=== PATIENT | female | born 1975 | race Caucasian/White ===

== ENCOUNTER 2017-11-15 15:00 | Outpatient (CLI) | payer OTHER ==
--- NOTE | 2017-11-15 15:54 | MMO ---
BILATERAL SCREENING MAMMOGRAM: DATE: 11/15/17 HISTORY: 42-year-old female for baseline screening mammography. FINDINGS: Bilateral MLO and CC views of the breasts show heterogeneously dense breast parenchyma, which may low er the sensitivity of mammography. There is no evidence of suspicious mass, suspicious cluster of raheem rocalcifications, or area of architectural distortion. Interpretation of this mammogram was performed with the assistance of computer-aided detection. IMPRESSION: BIRADS 1: Negative Annual screening mammography is recommended. POS: [facility]
== END 2017-11-15 15:01 | disposition home or self-care (01) ==
LOC: SCSMAMMO 15:00
PROVIDERS: ATTEND Family Medicine
DX: Z12.31 Encounter for screening mammogram for malignant neoplasm of breast (principal)
CPT/HCPCS: 77067

== ENCOUNTER 2018-02-10 13:32 | Emergency (ER) | payer OTHER, SELFPAY ==
[2018-02-10] MEDS ORDERED: Ketorolac Tromethamine 30 MG/ML VIAL ONE (14:17)
[2018-02-10] MEDS ORDERED: Ondansetron HCl/PF 4 MG/2 ML Vial ONE (14:17)
[2018-02-10 14:22] LABS: #Eosinphils 0.1 thou/uL (0.0-0.7); #Lymphocytes 1.5 thou/uL (1.20-3.40); #Monocytes 0.4 thou/uL (0.11-0.59); %Basophils 0.7 % (0.0-1.0); %Eosinophils 1.6 % (0.0-10.0); %Lymphocytes 24.3 % (21.0-51.0); %Monocytes 6.2 % (0.0-10.0); %Neutrophils 67.4 % (42.0-75.0); Mean Corpuscular HGB CONC 32.3 g/dL (32.0-36.0); Mean Corpuscular Hemoglobin 26.7 pg (27.0-31.0); Mean Corpuscular Volume 82.9 fL (78.0-98.0); Mean Platelet Volume 8.2 fL (7.4-10.4); Platelet Count 285 thou/uL (130-400); RBC Distribution Width 12.9 % (11.5-14.5); Red Blood Cell (RBC) Count 4.48 mill/uL (4.20-5.40)
[2018-02-10 14:23] LABS: Bilirubin Negative (Negative); Blood, Urine Negative (Negative); Clarity Clear (Clear); Glucose, Urine (Dipstick) Negative (Negative); Leukocyte Negative (Negative); Nitrite Negative (Negative); Protein, Urine (Dipstick) Negative (Neg-Trace); Urobilinogen 0.2 mg/dL (0.2-1.0); pH, Urine 5.5 (5.0-9.0)
[2018-02-10 14:24] LABS: Specific Gravity, Urine 1.028 (1.002-1.036)
[2018-02-10 14:28] LABS: Pregnancy Test - Urine (BHCG) Negative (Negative)
[2018-02-10 14:29] LABS: Pregu Control Background? CLEAR/WHITE (CLR/WHITE); Pregu Control Bar Appear? YES (CONTROL BAR); Specific Gravity 1.028 (1.002-1.036)
[2018-02-10 14:34] LABS: ALT (SGPT) 17 U/L (8-55); AST (SGOT) 19 U/L (5-34); Albumin 3.9 g/dL (3.5-5.0); Alkaline Phosphatase 121 U/L (40-150); Anion Gap 11 mmol/L (10-20); BUN (Urea Nitrogen) 7 mg/dL (7.0-18.7); Bilirubin, Total 0.2 mg/dL (0.2-1.2); Calc. Creatinine Clearance 0 mL/min (70-130); Calcium 9.1 mg/dL (7.8-10.44); Carbon Dioxide 26 mmol/L (22-29); Chloride 104 mmol/L (98-107); Estimated GFR-MDRD 75; Globulin 3.4 g/dL (2.4-3.5); Glucose 90 mg/dL (70-105); Lipase 17 U/L (8-78); Potassium 3.7 mmol/L (3.5-5.1); Protein, Total 7.3 g/dL (6.0-8.3); Sodium 137 mmol/L (136-145)
--- NOTE | 2018-02-10 15:16 | CT ---
CT ABDOMEN AND PELVIS WITHOUT IV CONTRAST: Multiple axial tomograms were obtained through the abdomen and pelvis without IV enhancement. INDICATION: Abdominal pain. Nausea. FINDINGS: The lung bases are clear. Liver, spleen, and pancreas unremarkable. Postcholecystectomy changes noted. Adrenal glands normal. Kidneys unremarkable. Small bowel loops unremarkable. Colon is nondistended and not adequately eval uated. Mural thickening cannot be adequately assessed. If there is concern of colitis, further eval uation with colonoscopy is recommended. The appendix is not identified.. Images through the pelvis appear unremarkable. There is evidence of hysterectomy. Aorta is normal c aliber. No adenopathy is seen. IMPRESSION: No acute process identified. Colon is nondistended and not adequately evaluated. POS: ОЛЬГА
== END 2018-02-10 14:51 | disposition home or self-care (01) ==
LOC: SCSER 13:32
DX: R11.2 Nausea with vomiting, unspecified (principal); R19.7 Diarrhea, unspecified; F32.9 Major depressive disorder, single episode, unspecified; F41.9 Anxiety disorder, unspecified; Z79.899 Other long term (current) drug therapy
CPT/HCPCS: 74176; 80053; 81003; 81025; 83690; 85025; 96374; 96375; J1885; J2405

== ENCOUNTER 2018-03-16 23:16 | Emergency (ER) | payer OTHER, SELFPAY ==
--- NOTE | 2018-03-16 23:52 | RAD ---
AP VIEW CHEST: 03/16/18 HISTORY: Shortness of breath. AP view chest is obtained. EKG leads seen over the chest. The lungs are well aerated. No evidence of active intrathoracic disease seen. No evidence of effusions, pneumonia or pneumothorax seen. IMPRESSION: Unremarkable AP view chest. POS: [facility]
[2018-03-17 00:02] LABS: ALT (SGPT) 23 U/L (8-55); AST (SGOT) 28 U/L (5-34); Albumin 3.9 g/dL (3.5-5.0); Alkaline Phosphatase 149 U/L (40-150); Anion Gap 13 mmol/L (10-20); BUN (Urea Nitrogen) 9 mg/dL (7.0-18.7); Bilirubin, Total 0.1 mg/dL (0.2-1.2); Calc. Creatinine Clearance 0 mL/min (70-130); Calcium 9.1 mg/dL (7.8-10.44); Carbon Dioxide 24 mmol/L (22-29); Chloride 105 mmol/L (98-107); Estimated GFR-MDRD 64; Globulin 3.6 g/dL (2.4-3.5); Glucose 96 mg/dL (70-105); Potassium 3.4 mmol/L (3.5-5.1); Protein, Total 7.5 g/dL (6.0-8.3); Sodium 139 mmol/L (136-145)
[2018-03-17 00:04] LABS: CKMB 0.3 ng/mL (0-6.6); Troponin I Less than 0.010 ng/mL (< 0.028)
[2018-03-17 00:08] LABS: Band 1 % (5-11); Lymphocytes 32 % (21-51); MDiff Complete? YES; Mean Corpuscular HGB CONC 32.9 g/dL (32.0-36.0); Mean Corpuscular Hemoglobin 26.8 pg (27.0-31.0); Mean Corpuscular Volume 81.5 fL (78.0-98.0); Mean Platelet Volume 7.4 fL (7.4-10.4); Monocytes 5 % (0-10); Neutrophil 61 % (42-75); Platelet Count 321 thou/uL (130-400); RBC Distribution Width 12.6 % (11.5-14.5); Reactive Lymphocytes 1 % (0-10); Red Blood Cell (RBC) Count 4.87 mill/uL (4.20-5.40); White Blood Cell (WBC) Count 9.1 thou/uL (4.8-10.8)
== END 2018-03-17 00:58 | disposition home or self-care (01) ==
LOC: SCSER 23:16
DX: J06.9 Acute upper respiratory infection, unspecified (principal); R07.89 Other chest pain; R00.2 Palpitations; F32.9 Major depressive disorder, single episode, unspecified; F41.9 Anxiety disorder, unspecified; Z79.899 Other long term (current) drug therapy
CPT/HCPCS: 71045; 80053; 82553; 84484; 85025; 87081; 87430; 93005; 96360

== ENCOUNTER 2018-06-08 19:09 | Emergency (ER) | payer OTHER ==
[2018-06-08] MEDS ORDERED: Ketorolac Tromethamine 30 MG/ML VIAL ONE (20:00)
[2018-06-08 20:11] LABS: Band 2 % (5-11); Eosinophils 4 % (0-10); Hemoglobin 13.7 g/dL (12.0-16.0); Lymphocytes 16 % (21-51); MDiff Complete? YES; Mean Corpuscular Hemoglobin 27.7 pg (27.0-31.0); Mean Corpuscular Volume 83.8 fL (78.0-98.0); Mean Platelet Volume 6.6 fL (7.4-10.4); Monocytes 9 % (0-10); Neutrophil 67 % (42-75); Platelet Count 404 thou/uL (130-400); Platelet Morphology Comment Appears Adequate; RBC Distribution Width 13.1 % (11.5-14.5); Reactive Lymphocytes 2 % (0-10); Red Blood Cell (RBC) Count 4.95 mill/uL (4.20-5.40); White Blood Cell (WBC) Count 8.8 thou/uL (4.8-10.8)
[2018-06-08 20:12] LABS: ALT (SGPT) 15 U/L (8-55); AST (SGOT) 23 U/L (5-34); Alkaline Phosphatase 153 U/L (40-150); Anion Gap 13 mmol/L (10-20); BUN (Urea Nitrogen) 9 mg/dL (7.0-18.7); Bilirubin, Total 0.3 mg/dL (0.2-1.2); Calc. Creatinine Clearance 0 mL/min (70-130); Calcium 9.2 mg/dL (7.8-10.44); Carbon Dioxide 24 mmol/L (22-29); Chloride 105 mmol/L (98-107); Estimated GFR-MDRD 67; Globulin 3.7 g/dL (2.4-3.5); Glucose 96 mg/dL (70-105); Potassium 3.3 mmol/L (3.5-5.1); Protein, Total 7.7 g/dL (6.0-8.3); Sodium 139 mmol/L (136-145)
--- NOTE | 2018-06-08 20:22 | RAD ---
TWO VIEWS LEFT HIP: 06/08/18 HISTORY: Pain. flu-like symptoms. AP and frogleg views left hip is obtained. AP and frogleg views left hip demonstrates no evidence of left hip fractures, subluxations or bony le sions. IMPRESSION: Normal two views left hip. POS: [facility]
== END 2018-06-08 20:51 | disposition home or self-care (01) ==
LOC: SCSER 19:09
DX: S70.02XA Contusion of left hip, initial encounter (principal); B34.9 Viral infection, unspecified; F32.9 Major depressive disorder, single episode, unspecified; F41.9 Anxiety disorder, unspecified; Z87.891 Personal history of nicotine dependence; Z79.899 Other long term (current) drug therapy; W19.XXXA Unspecified fall, initial encounter
CPT/HCPCS: 80053; 85025; 87804; 96361; 96374; J1885

== ENCOUNTER 2018-06-14 | Emergency (ER) | payer OTHER ==
[2018-06-14 00:38] LABS: #Basophils 0.1 thou/uL (0.0-0.2); #Eosinphils 0.2 thou/uL (0.0-0.7); #Monocytes 0.4 thou/uL (0.11-0.59); #Neutrophils 2.6 thou/uL (1.40-6.50); %Basophils 1.4 % (0.0-1.0); %Eosinophils 3.4 % (0.0-10.0); %Lymphocytes 38.1 % (21.0-51.0); %Monocytes 8.4 % (0.0-10.0); %Neutrophils 48.7 % (42.0-75.0); Hemoglobin 12.9 g/dL (12.0-16.0); Mean Corpuscular HGB CONC 32.8 g/dL (32.0-36.0); Mean Corpuscular Volume 85.4 fL (78.0-98.0); Mean Platelet Volume 6.9 fL (7.4-10.4); Platelet Count 370 thou/uL (130-400); RBC Distribution Width 12.5 % (11.5-14.5); Red Blood Cell (RBC) Count 4.61 mill/uL (4.20-5.40); White Blood Cell (WBC) Count 5.3 thou/uL (4.8-10.8)
[2018-06-14 00:59] LABS: ALT (SGPT) 21 U/L (8-55); AST (SGOT) 32 U/L (5-34); Albumin 3.9 g/dL (3.5-5.0); Alkaline Phosphatase 144 U/L (40-150); Anion Gap 12 mmol/L (10-20); BUN (Urea Nitrogen) 6 mg/dL (7.0-18.7); Bilirubin, Total 0.2 mg/dL (0.2-1.2); Calc. Creatinine Clearance 0 mL/min (70-130); Calcium 9.2 mg/dL (7.8-10.44); Carbon Dioxide 25 mmol/L (22-29); Chloride 105 mmol/L (98-107); Estimated GFR-MDRD 75; Globulin 3.3 g/dL (2.4-3.5); Glucose 97 mg/dL (70-105); Potassium 3.5 mmol/L (3.5-5.1); Protein, Total 7.2 g/dL (6.0-8.3); Sodium 138 mmol/L (136-145)
[2018-06-14] MEDS ORDERED: Ondansetron PF 4 MG/2 ML Vial ONE (01:36)
[2018-06-14 02:11] LABS: Bilirubin Negative (Negative); Blood, Urine Negative (Negative); Clarity CLEAR (Clear); Glucose, Urine (Dipstick) Negative (Negative); Leukocyte Negative (Negative); Nitrite Negative (Negative); Pregnancy Test - Urine (BHCG) Negative (Negative); Pregu Control Background? CLEAR/WHITE (CLR/WHITE); Pregu Control Bar Appear? YES (CONTROL BAR); Protein, Urine (Dipstick) Negative (Neg-Trace); Specific Gravity 1.033 (1.002-1.036); Specific Gravity, Urine 1.033 (1.002-1.036); Urobilinogen 0.2 mg/dL (0.2-1.0)
[2018-06-14] MEDS ORDERED: Ketorolac Tromethamine 30 MG/ML VIAL ONE (02:50)
[2018-06-14] MEDS ORDERED: Dicyclomine 20 MG TAB ONE (02:50)
--- NOTE | 2018-06-14 08:29 | CT ---
PRELIMINARY REPORT/[facility]/EMERGENTY AFTER-HOURS PROCEDURE CT Abdomen and Pelvis With Contrast EXAM DATE/TIME: 06/14/2018 2:41 AM CLINICAL HISTORY: 43 years old, female; Pain; Abdominal pain; Generalized; Patient HX: 43 yo female presents for evalua tion of abdominal pain. Patient states "it feels like a baby is pushing out of my rib. " patient stat es that she has presented to ed in the past given fluids and cleared to go home. She states that her pain had gotten worse and she felt dehydrated and so she wanted to be seen tonight. Patient states th at she has been nauseated during this entire time. She denies vomiting, but states she has longstandi ng diarrhea. She denies fevers or chills. Surgical HX of complete hysterectomy, thyroidectomy, cholecystectomy TECHNIQUE: Axial computed tomography images of the abdomen and pelvis with intravenous contrast. Coronal reformatted images were created and reviewed. COMPARISON: No relevant prior studies available. FINDINGS: Lower thorax: No acute findings. ABDOMEN: Liver: Normal. No mass. Gallbladder and bile ducts: Prior cholecystectomy. Pancreas: Normal. No ductal dilation. Spleen: Normal. No splenomegaly. Adrenals: Normal. No mass. Kidneys and ureters: Normal. No hydronephrosis. Stomach and bowel: No bowel wall thickening or intestinal obstruction. Appendix: Normal appendix. PELVIS: Bladder: Unremarkable as visualized. Reproductive: Prior hysterectomy. ABDOMEN and PELVIS: Intraperitoneal space: Normal. No free air. No significant fluid collection. Bones/joints: No acute fracture. No dislocation. Soft tissues: Unremarkable. Vasculature: Normal. No abdominal aortic aneurysm. Lymph nodes: Normal. No enlarged lymph nodes. IMPRESSION: No acute findings. Thank you for allowing us to participate in the care of your patient. Dictated and Authenticated by: Vipin La MD 06/14/2018 3:54 AM Central Time ([place] & [place]) FINAL REPORT CT ABDOMEN AND PELVIS WITH IV CONTRAST: Date: 06/14/18 IMPRESSION: I agree with the preliminary report given by Jorge. POS: OFF
[2018-06-14] MEDS ORDERED: ISOVUE-370 76%-LOCM 1 ML ONE (09:27)
== END 2018-06-14 03:59 | disposition home or self-care (01) ==
LOC: ERS
DX: K58.9 Irritable bowel syndrome, unspecified (principal); F41.9 Anxiety disorder, unspecified; F32.9 Major depressive disorder, single episode, unspecified; Z87.891 Personal history of nicotine dependence; Z79.899 Other long term (current) drug therapy
CPT/HCPCS: 36415; 74177; 80053; 81003; 81025; 83690; 85025; 93005; 96361; 96374; 96375; J1885; J2405; Q9966

== ENCOUNTER 2018-11-10 16:21 | Emergency (ER) | payer OTHER ==
[2018-11-10] MEDS ORDERED: Ketorolac Tromethamine 30 MG/ML VIAL ONE (17:25)
== END 2018-11-10 17:45 | disposition home or self-care (01) ==
LOC: SCSER 16:21
DX: R51 Headache (principal); K58.9 Irritable bowel syndrome, unspecified; F41.9 Anxiety disorder, unspecified; F32.9 Major depressive disorder, single episode, unspecified; Z79.899 Other long term (current) drug therapy; Z79.01 Long term (current) use of anticoagulants
CPT/HCPCS: 96372; 99283; J1885

== ENCOUNTER 2019-03-20 13:13 | Observation (INO) | payer OTHER ==
--- NOTE | 2019-03-20 13:16 | PDOC.FPRHP ---
- History of Present Illness Chief Complaint: Chest pain History of Present Illness: 43 y/o F with a pmhx of thyroid CA, S/P thyroidectomy, IBS, LEAH, and MDD, here for chest pain that started last week on Wed or Wednesday. Pt states she started having the CP suddenly and the pain radiated down her R arm. The character was sharp and tingling/numbness with the radiation. Pt became dizzy/faint, but denies any syncopal event. Pt describes an accompanied slowing and transient rise in heart rate, not described as a palpitation. Last night the pt had another episode of CP, 7/10 intensity, with associated dizziness, nausea and SOB. Pt states that yesterday when the CP came on she was lifting a box of cola cans and walking up stairs. The pain alleviated to a 5/10 when she rested. The PT c/o current 5/10 CP, denies current Nausea or SOB. States she is slightly anxious about the chest pain. Pt was seen an evaluated at [facility] Last week, with neg EKG and trops. Discharged home from ER, to F/U with PCP. Pt saw PCP, TAMP, today and was directly admitted to hospital from clinic for ACS rule out. EKG nml in clinic, with active chest pain. - Allergies/Adverse Reactions Allergies Allergy/AdvReac Type Severity Reaction Status Date / Time Penicillins Allergy Verified 03/20/19 14:22 promethazine Allergy Verified 03/20/19 14:22 - Home Medications Medication Instructions Recorded Confirmed Type BuPROPion SR [Wellbutrin SR] 150 mg PO DAILY 03/20/19 03/20/19 History Dicyclomine HCl 10 mg PO QID 03/20/19 03/20/19 History Escitalopram Oxalate [Lexapro] 20 mg PO DAILY 03/20/19 03/20/19 History Estradiol 2 mg PO DAILY 03/20/19 03/20/19 History Levothyroxine Sodium [Synthroid] 150 mcg PO DAILY 03/20/19 03/20/19 History Potassium Chloride [Klor-Con M20] 20 meq PO DAILY 03/20/19 03/20/19 History - History PMHx: Papillary Thyroid CA, IBS, LEAH, Depression PSHx: Thyroidectomy 2012, Hysterectomy 2000 b/c of endometriosis, Cholecystectomy 2015 FHx: Mother: HTN, Father: HTN, DM II, Siblings healthy Grandparents: GF at 50 with AR. Social: Denies durrent tobacco use, quit smoking. Prior 1/2 ppd for 10 years. Denies drug or etoh use. - Review of Systems General: denies: fever/chills, weight/appetite/sleep changes ENT: denies: nasal congestion Respiratory: reports: shortness of breath, exercise intolerance. denies: cough , congestion Cardiovascular: reports: chest pain. denies: palpitation, edema, paroxysmal nocturnal dyspnea, orthopnea Gastrointestinal: reports: nausea. denies: vomiting, diarrhea, constipation, abdominal pain Genitourinary: denies: dysuria, polyuria Musculoskeletal: reports: pain, tenderness (Left chest) Neurological: reports: numbness (R UE, see HPI) Psychological: reports: anxiety. denies: depression - Vital signs BP: 114/80 HR: 65 RR: 16 Tmax: 98 Pox: 97% on RA Wt: 74 kg - Physical Exam Constitutional: NAD, awake, alert and oriented, well developed HEENT: normocephalic and atraumatic, PERRLA, EOMI, conjunctiva clear, no scleral icterus, grossly normal vision, grossly normal hearing, MMM, oropharynx clear, good dention Neck: supple, FROM, trachea midline, no LAD, no JVD, no bruits Chest: no lesions -Chest: Tender to palpation Left anterior chest wall at 3-5 intercostal spaces. Heart: RRR, normal S1/S2, no murmurs/rubs/gallops, pulses present, no edema Lungs: CTAB, no respiratory distress, good air movement, no rales/rhonchi, no wheezing, no retractions Abdomen: soft, non-tender, bowel sounds present, no masses/distention, no hernias Musculoskeletal: normal structure, normal tone, ROM grossly normal Neurological: no focal deficit, CN II-XII intact, normal sensation Skin: no rash/lesions, good turgor, capillary refill <2 seconds, no jaundice Heme/Lymphatic: no unusual bruising or bleeding, no purpura, no petechia Psychiatric: normal mood and affect, good judgment and insight, intact recent and remote memory -Psychiatric: Denies suicidal or homicidal ideation FMR H&P: Results - Labs Result Diagrams: 03/20/19 15:58 03/21/19 04:29 - EKG Interpretation EKG: NSR FMR H&P: A/P - Problem List (1) Atypical chest pain Current Visit: Yes Status: Acute Code(s): R07.89 - OTHER CHEST PAIN (2) Papillary adenocarcinoma of thyroid Current Visit: Yes Status: Acute Code(s): C73 - MALIGNANT NEOPLASM OF THYROID GLAND (3) Hx of thyroidectomy Current Visit: Yes Status: Acute Code(s): Z90.09 - ACQUIRED ABSENCE OF OTHER PART OF HEAD AND NECK (4) LEAH (generalized anxiety disorder) Current Visit: Yes Status: Acute Code(s): F41.1 - GENERALIZED ANXIETY DISORDER (5) Depressed Current Visit: Yes Status: Acute Code(s): F32.9 - MAJOR DEPRESSIVE DISORDER , SINGLE EPISODE, UNSPECIFIED (6) IBS (irritable bowel syndrome) Current Visit: Yes Status: Acute - Plan 43 y/o admitted for ACS rule out of atypical chest pain. 1.Atypical Chest Pain, ACS rule out - DDx: chostochondritis, MSK causes, ACS - Risk stratify: fasting glucose, FLP, CMP, Mg, Phos - Troponin X3 - Echo - Stress test - NPO at mid-night - CXR 2. Iatrogenic Hypothyroidism from Thyroid CA, S/P Thyroidectomy - Continue Synthroid 150 mcg - Check TSH 3. LEAH and MDD - Continue home meds of lexapro and wellbutrin 4. Hx of IBS - Continue bentyl Q6H, PRN 5. Hx of Hypokalemia - Ordered CMP - continue home 20 mg klorcon Code Status: full code Diet: HH, NPO at mid-night DVT ppx: SCD's Dispo: Stable, admitted to tele obs for ACS rule out and risk stratification. FMR H&P: Upper Level - Pertinent history Patient presents as direct admit from clinic. 43 year old female recently seen at [facility] ED for chest pain. Chest pain came on at rest and was described as a stabbing pain that transitioned to pressure like pain. The pain radiated down left arm and up through the neck. She states it lasted for several hours. Workup at outside ED including EKG, CXR, and labs were normal, so she was discharged home. The pain returned yesterday while driving and was present for 3 hours. The pain was associated with light headedness. Today, patient presented to clinic with chest pain onset just prior to leaving for appointment. FH significant for multiple family members with AR's before the age of 55. Patient has a history of tobacco abuse, smoking 1/2 PPD for 10 years. Patient states that she is very tender to palpation in left chest area. 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 EKG in clinic was normal. No evidence of ST depression, elevation, or twave changes. Patient admitted for further workup to include stress test and echo given recurrent nature of chest pain and family history of CAD. - Pertinent findings General: Alert and oriented x3. NAD. HEENT: MMM. Card: RRR. No murmurs. Resp: CTA, no acute respiratory distress. Abdomen: Soft, nontender Ext: No edema or cyanosis MSK: Very tender to palpation of left chest. - Plan Date/Time: 03/20/19 1316 I, Vandana Rossi, have evaluated this patient and agree with findings/plan as outlined by operations intern resident. Pertinent changes/additions are listed here. Atypical chest pain - Heart score 1; suspect MSK pain - FH CAD <55 y/o, BMI >30 - Remote hx tobacco abuse 1/2 PPD for 10 years - Risk stratify: FLP, HgA1c, TSH, Mg, P - Echo pending - Stress test pending; will do exercise stress test - Can try naproxen for MSK pain Iatrogenic hypothyroidism - Continue levothyroxine Hx papillary adenocarcinoma - s/p thyroidectomy Depression/Anxiety - Continue lexapro and wellbutrin Code status: Full DVT ppx: SCD's, ambulation Dispo: Obs on telemetry. Addendum - Attending - Attending Attestation Date/Time: 03/21/19 4923 I personally evaluated the patient and discussed the management with Dr. Bingham on 03/20/19 I agree with the History, Examination, Assessment and Plan documented above with any addition or exceptions noted below- 43 year old female recently seen at [facility] ED for chest pain. Chest pain came on at rest and was described as a stabbing pain that transitioned to pressure like pain. The pain radiated down left arm and up through the neck. She states it lasted for several hours. Workup at outside ED including EKG, CXR, and labs were normal, so she was discharged home. The pain returned yesterday while driving and was present for 3 hours. The pain was associated with light headedness.m (+) FH of CAD. PMH/PSH/ ALl/Meds reviewed and agree with residents documentation. Afebrile VSS. Exam repeated by me and agree with resident's findings. Labs: EKG- NSR, no ST changes. Trop I <0.010. A/P: 1) Chest pain- recurrent. WIll tyrend serial cardiac enzymes. Plan for stress in AM of troponins are negative.
[2019-03-20] MEDS ORDERED: Ondansetron ODT 4 MG TAB PO PRN (14:22)
[2019-03-20] MEDS ORDERED: Acetaminophen 325 MG TAB PO PRN (14:22)
[2019-03-20] MEDS ORDERED: Ondansetron PF 4 MG/2 ML Vial SLOW IVP PRN (14:22)
[2019-03-20] MEDS ORDERED: Nitroglycerin 0.4 MG TAB (25 Tab Bottle) SL PRN (15:34)
[2019-03-20 16:09] LABS: #Eosinphils 0.1 thou/uL (0.0-0.7); #Lymphocytes 1.9 thou/uL (1.20-3.40); #Monocytes 0.3 thou/uL (0.11-0.59); #Neutrophils 3.8 thou/uL (1.40-6.50); %Basophils 0.3 % (0.0-1.0); %Eosinophils 2.3 % (0.0-10.0); %Lymphocytes 30.6 % (21.0-51.0); %Monocytes 5.5 % (0.0-10.0); %Neutrophils 61.2 % (42.0-75.0); Hemoglobin 12.7 g/dL (12.0-16.0); Mean Corpuscular HGB CONC 33.9 g/dL (32.0-36.0); Mean Corpuscular Hemoglobin 27.8 pg (27.0-31.0); Mean Corpuscular Volume 82.2 fL (78.0-98.0); Mean Platelet Volume 6.9 fL (7.4-10.4); Platelet Count 377 thou/uL (130-400); Red Blood Cell (RBC) Count 4.55 mill/uL (4.20-5.40); White Blood Cell (WBC) Count 6.2 thou/uL (4.8-10.8)
[2019-03-20 16:14] LABS: Hemoglobin A1c 5.3 % (4.0-6.0)
[2019-03-20 16:29] LABS: ALT (SGPT) 23 U/L (8-55); AST (SGOT) 26 U/L (5-34); Albumin 3.9 g/dL (3.5-5.0); Alkaline Phosphatase 145 U/L (40-110); Anion Gap 12 mmol/L (10-20); BUN (Urea Nitrogen) 7 mg/dL (7.0-18.7); Bilirubin, Total 0.2 mg/dL (0.2-1.2); Calc. Creatinine Clearance 0 mL/min (70-130); Calcium 8.9 mg/dL (7.8-10.44); Carbon Dioxide 24 mmol/L (22-29); Chloride 105 mmol/L (98-107); Estimated GFR-MDRD 76; Globulin 3.3 g/dL (2.4-3.5); Glucose 106 mg/dL (70-105); Potassium 3.3 mmol/L (3.5-5.1); Protein, Total 7.2 g/dL (6.0-8.3); Sodium 138 mmol/L (136-145)
[2019-03-20 16:34] LABS: Troponin I Less than 0.010 ng/mL (< 0.028)
--- NOTE | 2019-03-20 18:55 | RAD ---
RADIOGRAPH CHEST 2 VIEW: DATE: 03/20/2019 HISTORY: 43-year-old female with chest pain FINDINGS: There is no airspace density, pulmonary edema, pleural effusion, or pneumothorax. IMPRESSION: No acute pulmonary findings.
[2019-03-20 19:45] LABS: Troponin I Less than 0.010 ng/mL (< 0.028)
[2019-03-20] MEDS: Dicyclomine 10 MG CAP PO SCH (20:27)
[2019-03-20 21:01] VITALS: BMI 30.8
[2019-03-21 05:39] LABS: Anion Gap 11 mmol/L (10-20); BUN (Urea Nitrogen) 6 mg/dL (7.0-18.7); Calc. Creatinine Clearance 115 mL/min (70-130); Calcium 8.3 mg/dL (7.8-10.44); Carbon Dioxide 27 mmol/L (22-29); Cardiac Risk 5.1 (Less than 4.5); Chloride 104 mmol/L (98-107); Cholesterol 235 mg/dl (< 200 Desired); Estimated GFR-MDRD 85; Glucose 91 mg/dL (70-105); HDL Cholesterol 46 mg/dL (>60 Neg Risk); LDL Cholesterol, Calculated 136 mg/dL; Potassium 3.5 mmol/L (3.5-5.1); Sodium 138 mmol/L (136-145); Triglycerides 264 mg/dL (Less than 150)
[2019-03-21] MEDS ORDERED: Levothyroxine 150 MCG TAB PO SCH (06:00)
--- NOTE | 2019-03-21 06:15 | PDOC.FM ---
- Subjective Subjective: Patient had an acute over night event of chest pain that radiated down the right arm. This was alleviated with the use of nitroglycerin. Patient denies any active chest pain this morning or shortness of breath. Patient also had normal chest x-ray yesterday. The echocardiogram reading came back as 50 to 55% ejection fraction with mild tricuspid and mitral valve regurgitation. Pt goes for stress test this morning. - Objective MAR Reviewed: Yes Vital Signs & Weight: Vital Signs (12 hours) Temp Pulse Resp BP Pulse Ox 03/21/19 04:00 97.6 F 67 16 102/58 L 97 03/21/19 02:09 98 03/21/19 00:00 98.9 F 66 16 114/79 97 03/20/19 20:02 86 111/77 03/20/19 19:57 98.6 F 80 16 121/80 98 Weight Weight 73.936 kg I&O: 03/19/19 03/20/19 03/21/19 06:59 06:59 06:59 Intake Total 240 Balance 240 Result Diagrams: 03/20/19 15:58 03/21/19 04:29 Radiology Reviewed by me: Yes (CXR no acute findings. ) Phys Exam - Physical Examination Constitutional: NAD HEENT: moist MMs, sclera anicteric Neck: no nodes, no JVD, supple, full ROM Respiratory: no wheezing, no rales, no rhonchi, clear to auscultation bilateral Cardiovascular: RRR, no significant murmur, no rub Gastrointestinal: soft, non-tender, no distention, positive bowel sounds Musculoskeletal: no edema, pulses present Neurological: non-focal, normal sensation, moves all 4 limbs Psychiatric: normal affect, A&O x 3 Skin: no rash, normal turgor, cap refill <2 seconds Dx/Plan (1) Atypical chest pain Code(s): R07.89 - OTHER CHEST PAIN Status: Acute (2) Papillary adenocarcinoma of thyroid Code(s): C73 - MALIGNANT NEOPLASM OF THYROID GLAND Status: Acute (3) Hx of thyroidectomy Code(s): Z90.09 - ACQUIRED ABSENCE OF OTHER PART OF HEAD AND NECK Status: Acute (4) LEAH (generalized anxiety disorder) Code(s): F41.1 - GENERALIZED ANXIETY DISORDER Status: Acute (5) Depressed Code(s): F32.9 - MAJOR DEPRESSIVE DISORDER, SINGLE EPISODE, UNSPECIFIED Status : Acute (6) IBS (irritable bowel syndrome) Status: Acute - Plan Plan: 43 y/o admitted for ACS rule out of atypical chest pain. 1.Atypical Chest Pain, ACS rule out - DDx: chostochondritis, MSK causes, ACS - Risk stratify: fasting glucose 91, FLP: tri 264, T chol 235, HDL 46, LDL 136 - Troponin X2 neg - Echo: EF 50-55%, mild TR and MR. - Stress test 03/21 AM - NPO at mid-night - CXR no acute findings - ASCVD risk 3.7%, no statin therapy indicated. 2. Iatrogenic Hypothyroidism from Thyroid CA, S/P Thyroidectomy - Continue Synthroid 150 mcg - TSH 0.6641 3. LEAH and MDD - Continue home meds of lexapro and wellbutrin 4. Hx of IBS - Continue bentyl Q6H, PRN 5. Hx of Hypokalemia - Ordered CMP, K+ 3.5 - continue home 20 mg klorcon Code Status: full code Diet: HH, NPO at mid-night DVT ppx: SCD's Dispo: Stable, admitted to tele obs for ACS rule out and risk stratification.
[2019-03-21] MEDS ORDERED: Potassium Chloride 20 MEQ TAB PO SCH (08:00)
[2019-03-21] MEDS ORDERED: Escitalopram Oxalate 20 mg Tablet PO SCH (09:00)
[2019-03-21] MEDS ORDERED: Bupropion 150 MG SR TAB PO SCH (09:00)
[2019-03-21] MEDS ORDERED: Estradiol 1 MG TAB PO SCH (09:00)
[2019-03-21 11:53] VITALS: BP 111/80; TEMP 98.5
[2019-03-21] MEDS: Dicyclomine 10 MG CAP PO SCH (12:01)
--- NOTE | 2019-03-21 12:23 | PRG ---
DATE OF SERVICE: 03/21/2019 Ms. Olmstead is a pleasant 43-year-old lady admitted with atypical chest pain. Her stress test is negative and she will be discharged. Her CBC was normal. Her chemistry-7 was normal. Her cholesterol was 235, LDL was 136, HDL was 46. Job ID: [id number]
--- NOTE | 2019-03-22 17:26 | DIS ---
DATE OF ADMISSION: 03/20/2019 DATE OF DISCHARGE: 03/21/2019 ADMITTING ATTENDING: Rowan Camargo MD DISCHARGE ATTENDING: Jose Guadalupe Guzman MD CONSULT: None. PROCEDURES: Echocardiogram, 50% to 55% ejection fraction, mild tricuspid regurgitation and mild mitral regurgitation. Exercise stress test, which was negative. DIAGNOSES: 1. Atypical chest pain secondary to musculoskeletal etiology, likely costochondritis. 2. Iatrogenic hypothyroidism, status post thyroidectomy. 3. History of papillary thyroid adenocarcinoma. 4. Major depressive disorder. 5. Generalized anxiety disorder. DISCHARGE MEDICATIONS: 1. Levothyroxine. 2. Wellbutrin 150 mg p.o. daily. 3. Dicyclomine HCl 10 mg p.o. q.i.d. p.r.n. 4. Escitalopram 20 mg p.o. daily. 5. Estradiol 2 mg p.o. daily. 6. Synthroid 150 mcg p.o. daily. 7. Potassium chloride 20 mEq p.o. daily. HISTORY OF PRESENT ILLNESS/HOSPITAL COURSE: Ms. Olmstead is a 43-year-old female, who came into the emergency department after being sent from clinic for followup on the ER visit over at [facility] for chest pain. The patient had a negative EKG with negative troponins at [facility] and was discharged home to follow up with PCP. The patient was still having chest pain at PCP visit and was directly admitted over to the hospital for further workup and evaluation. 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 Upon physical exam, she had reproducible tenderness to the left upper chest. Her echo with an EF of 50% to 55%, mild tricuspid and mitral valve regurgitation. Chest x-ray had no acute findings. Stress test on the exercise treadmill was negative and ASCVD score was 3.7%, so no statin therapy was started at this time. The patient is to follow up with primary care physician, Dr. Haley at [facility] in one week's time to discuss further options, so the patient is stable upon discharge. INSTRUCTIONS: 1. Location: To home. 2. Diet: Heart healthy. 3. Activity: As tolerated. 4. Followup: With Dr. Haley at [facility] in one week. Job ID: [id number] [facility]
== END 2019-03-21 13:30 | disposition home or self-care (01) ==
LOC: 2SE 13:13
PROVIDERS: ADMIT Family Medicine; ATTEND Family Medicine
DX: R07.89 Other chest pain (principal); E89.0 Postprocedural hypothyroidism; K58.9 Irritable bowel syndrome, unspecified; F41.1 Generalized anxiety disorder; F32.9 Major depressive disorder, single episode, unspecified; E87.6 Hypokalemia; Z79.899 Other long term (current) drug therapy; Z85.850 Personal history of malignant neoplasm of thyroid; Z87.891 Personal history of nicotine dependence; Z88.0 Allergy status to penicillin; Z88.8 Allergy status to other drugs, medicaments and biological substances; Z90.09 Acquired absence of other part of head and neck
CPT/HCPCS: 36415; 71046; 80048; 80053; 80061; 83036; 83735; 84100; 84443; 84484; 85025; 93005; 93010; 93017; 93306; 94760; G0378; Q0162